=== PATIENT | male | born 1970 | race Caucasian/White ===

== ENCOUNTER 2018-10-30 16:23 | Inpatient (IN) | payer OTHER ==
[2018-10-30 21:32] VITALS: BMI 21.1
--- NOTE | 2018-10-30 22:52 | HP ---
COWS - Scale Resting Pulse: 1= [place] 81-100 Sweatin=Flushed/Facial Moisture Restless Observation: 5= Unable to Sit Still Pupil Size: 1= Pupils >than Normal Bone or Joint Aches: 4=Acute Joint/Muscle Pain Runny Nose/ Eye Tearin= Runny Nose/Eyes GI Upset > 30mins: 3= Vomiting/Diarrhea Tremor Observation: 0= None Yawning Observation: 2= >3x During Session Anxiety or Irritability: 4=Extreme Anxiety Goose Flesh Skin: 0=Smooth Skin COWS Score: 24 CIWA Score - Admission Criteria [facility]ASAS Guidelines: Admission for Medically Managed Detox: Requires at least one of the followin. CIWA greater than 12 2. Seizures within the past 24 hours 3. Delirium tremens within the past 24 hours 4. Hallucinations within the past 24 hours 5. Acute intervention needed for co occurring medical disorder 6. Acute intervention needed for co occurring psychiatric disorder 7. Severe withdrawal that cannot be handled at a lower level of care (continued vomiting, continued diarrhea, abnormal vital signs) requiring intravenous medication and/or fluids 8. Admission [facility] Chief Complaint: C/O WITHDRAWAL SX'S.SEEKING DETOX Allergies/Adverse Reactions: Allergies Allergy/AdvReac Type Severity Reaction Status Date / Time No Known Allergies Allergy Verified 10/30/18 21:58 History of Present Illness: 47 Y.O. MALE WITH HX/O HEROIN AND COCAINE DEPENDENCE HERE FOR DETOX. CLIENT PRESENTS IN MODERATE DISTRESS C/O WITHDRAWAL SX'S. COWS 24. UTOX + FEN, THC, OPI , KENNY, MET. EVELIO 0. HE IS SELF REFERRED. STATES THIS IS HIS FIRST ATTEMPT AT INPATIENT SUBSTANCE ABUSE TXMENT. REPORTS USING 5 BUNDLES DAILY/ SNIFF/ LAST USED THIS MORNING 10 BAGS. DENIES ANY SIGNIFICANT PERIOD OF CLEAN TIME. REPORTS PREVIOUS OVERDOSE X 2. DENIES PAST/ PRESENT SI/HI, AVH, SEIZURE D/O/. HOMELESS, UNEMPLOYED, DENIES LEGALS PMHX- ASTHMA, PSYCH - SCHIZOPHRENIA Exam Limitations: No Limitations - Ebola screening Have you traveled outside of the country in the last 21 days: No Have you had contact with anyone from an Ebola affected area: No Have you been sick,other than usual withdrawal symptoms: No Do you have a fever: No - Review of Systems Constitutional: Chills, Loss of Appetite, Malaise, Night Sweats, Changes in sleep, Unexplained wgt Loss EENT: reports: Nose Congestion, Dental Problems (MISSING TEETH) Respiratory: reports: Shortness of Breath Cardiac: reports: No Symptoms Reported GI: reports: Diarrhea, Nausea, Poor Appetite, Vomiting, Abdominal cramping : reports: No Symptoms Reported Musculoskeletal: reports: Back Pain, Joint Pain, Neck Pain Integumentary: reports: No Symptoms Reported Neuro: reports: No Symptoms reported Endocrine: reports: No Symptoms Reported Hematology: reports: No Symptoms Reported Psychiatric: reports: Orientated x3, Agitated, Anxious, Depressed Other Systems: Reviewed and Negative Patient History - Patient Medical History Hx Anemia: No Hx Asthma: Yes Hx Chronic Obstructive Pulmonary Disease (COPD): No Hx Cancer: No Hx Cardiac Disorders: No Hx Congestive Heart Failure: No Hx Hypertension: No Hx Hypercholesterolemia: No Hx Pacemaker: No HX Cerebrovascular Accident: No Hx Seizures: No Hx Diabetes: No Hx Gastrointestinal Disorders: No Hx Liver Disease: No Hx Genitourinary Disorders: No Hx Sexually Transmitted Disorders: No Hx Renal Disease (ESRD): No Hx Thyroid Disease: No Hx Human Immunodeficiency Virus (HIV): No Hx Hepatitis C: No Hx Depression: Yes Hx Suicide Attempt: No Hx Schizophrenia: Yes - Patient Surgical History Past Surgical History: No Hx Neurologic Surgery: No Hx Cataract Extraction: No Hx Cardiac Surgery: No Hx Lung Surgery: No Hx Breast Surgery: No Hx Breast Biopsy: No Hx Abdominal Surgery: No Hx Appendectomy: No Hx Cholecystectomy: No Hx Genitourinary Surgery: No Hx Section: No Hx Orthopedic Surgery: No Anesthesia Reaction: No - PPD History Previous Implant?: Yes Documented Results: Negative w/o proof Implanted On Prior R Admission?: No PPD to be Administered?: Yes - Smoking Cessation Smoking history: Current every day smoker Have you smoked in the past 12 months: Yes Aproximately how many cigarettes per day: 20 Cigars Per Day: 0 Hx Chewing Tobacco Use: No Initiated information on smoking cessation: Yes 'Breaking Loose' booklet given: 10/30/18 - Substance & Tx. History Hx Alcohol Use: Yes Hx Substance Use: Yes Substance Use Type: Cocaine, Heroin Hx Substance Use Treatment: No - Substances Abused Heroin Route: Inhalation Frequency: Daily Amount used: 50 bags Age of first use: 36 Date of Last Use: 10/30/18 Alprazolam (Xanax) Route: Oral Frequency: Daily Amount used: 2mg Age of first use: 36 Date of Last Use: 10/26/18 Cocaine Route: Smoking Frequency: Daily Amount used: 10 bags Age of first use: 14 Date of Last Use: 10/30/18 Family Disease History - Family Disease History Family Disease History: Other: Father (MENTAL HEALTH ISSUES) Admission Physical Exam [facility] - Vital Signs Vital Signs: Vital Signs - 24 hr 10/30/18 21:27 Temperature 97.8 F Pulse Rate 76 Respiratory 18 Rate Blood Pressure 116/79 - Physical General Appearance: Yes: Appropriately Dressed, Moderate Distress, Tremorous ( FELT), Irritable, Sweating, Anxious HEENTM: Yes: EOMI (DILATED PUPILS), Normocephalic, Normal Voice, SOFIA, Pharynx Normal, Nasal Congestion, Rhinorrhea, Other (POOR DENTITION) Respiratory: Yes: Chest Non-Tender, Lungs Clear, Normal Breath Sounds, No Respiratory Distress, No Accessory Muscle Use Neck: Yes: No masses,lesions,Nodules, Supple, Trachea in good position Breast: Yes: Breasts Symetrical Cardiology: Yes: Regular Rhythm, S1, S2, Tachycardia Abdominal: Yes: Non Tender, Flat, Soft, Increased Bowel Sounds Genitourinary: Yes: Hesitency Back: Yes: Normal Inspection Musculoskeletal: Yes: full range of Motion, Gait Steady Extremities: Yes: Normal Capillary Refill, Normal Range of Motion, Non-Tender, Tremors (FELT) Neurological: Yes: Fully Oriented, Alert, Motor Strength 5/5 Integumentary: Yes: Clammy (AND COOL) Lymphatic: Yes: Within Normal Limits - Diagnostic (1) Opioid dependence with withdrawal Current Visit: Yes Status: Acute (2) Cocaine abuse, uncomplicated Current Visit: Yes Status: Acute (3) Cannabis abuse, uncomplicated Current Visit: Yes Status: Acute (4) Nicotine dependence Current Visit: Yes Status: Acute Qualifiers: Nicotine product type: cigarettes Substance use status: uncomplicated Qualified Code(s): F17.210 - Nicotine dependence, cigarettes, uncomplicated (5) Asthma Current Visit: Yes Status: Chronic Qualifiers: Asthma severity: mild Asthma persistence: unspecified (6) Substance induced mood disorder Current Visit: Yes Status: Acute (7) Substance-induced sleep disorder Current Visit: Yes Status: Acute (8) At risk for dehydration due to poor fluid intake Current Visit: Yes Status: Acute (9) Depressed affect Current Visit: Yes Status: Acute (10) Homeless Current Visit: Yes Status: Acute Cleared for Admission [facility] - Detox or Rehab [facility] Level of Care: Medically Managed Detox Regimen/Protocol: Methadone Claeared for Rehab Admission: No [facility] Breath Alcohol Content Breath Alcohol Content: 0 Urine Drug Screen - Results Drug Screen Negative: No Urine Drug Screen Results: THC-Marijuana, KENNY-Cocaine, OPI-Opiates, MET- Methamphetamine, FEN-Fentanyl Inpatient Rehab Admission - Rehab Decision to Admit Inpatient rehab admission?: No
[2018-10-30] MEDS ORDERED: BISMUTH SUBSALICYLATE 524 MG/30 ML UD PO PRN (22:56)
[2018-10-30] MEDS ORDERED: NICOTINE POLACRILEX 2 MG GUM BUC PRN (22:56)
[2018-10-30] MEDS ORDERED: MAGNESIUM HYDROX 2400MG/30ML ORAL SUSPENSION 30 ML CUP PO PRN (22:56)
[2018-10-30] MEDS ORDERED: MAG HYDROX/AL HYDROX/SIMETH 30 ML UNIT-DOSE CUP PO PRN (22:56)
[2018-10-30] MEDS ORDERED: IBUPROFEN 400 MG TABLET (FP) PO PRN (22:56)
[2018-10-30] MEDS ORDERED: METHOCARBAMOL 500 MG TABLET PO PRN (22:56)
[2018-10-30] MEDS ORDERED: P-EPHED 60MG/TRIPROLIDI 2.5MG TABLET PO PRN (22:56)
[2018-10-30] MEDS ORDERED: ACETAMINOPHEN 325 MG TABLET (FP) PO PRN (22:56)
[2018-10-30] MEDS ORDERED: ONDANSETRON *ODT* 4 MG TABLET SL PRN (22:56)
[2018-10-30] MEDS ORDERED: DICYCLOMINE HCL 10 MG CAPSULE PO PRN (22:56)
[2018-10-30] MEDS ORDERED: guaiFENesin 200 MG/10 ML 10 ML UNIT-DOSE CUPS PO PRN (22:56)
[2018-10-30] MEDS ORDERED: MENTHOL/PHENOL 1 EACH UD MM PRN (22:56)
[2018-10-30] MEDS ORDERED: MAGNESIUM CITRATE 300 ML BOTTLE PO PRN (22:56)
[2018-10-30] MEDS ORDERED: NALOXONE HCL 0.4 MG/ML VIAL IVPUSH PRN (23:55)
[2018-10-31] MEDS: hydrOXYzine PAMOATE 25 MG CAPSULE (FP) PO PRN ×2 (00:34→10:16)
[2018-10-31] MEDS: cloNIDine HCL 0.1 MG TABLET PO PRN ×2 (00:37→10:16)
[2018-10-31] MEDS ORDERED: METHADONE HCL 10 MG TABLET (FOR DETOX USE ONLY) PO ONE ×2 (10:00)
[2018-10-31] MEDS: NICOTINE 21 MG/24 HOURS TOPICAL PATCH TD SCH (10:16)
[2018-10-31] MEDS: PRENATAL VITAMINS W/ FOLIC ACID TABLET (FP) PO SCH (10:16)
[2018-10-31 11:32] LABS: ALBUMIN 3.4 g/dl (3.4-5.0); ALK PHOS 80 U/L (45-117); ANION GAP 6 MMOL/L (8-16); BILIRUBIN,TOTAL 0.4 mg/dL (0.2-1); BLOOD UREA NITROGEN 11 mg/dL (7-18); CALCIUM 9.4 mg/dL (8.5-10.1); CHLORIDE 107 mmol/L (98-107); CO2 26 mmol/L (21-32); CREATININE 0.8 mg/dL (0.55-1.3); GLUCOSE,RANDOM 85 mg/dL (74-106); POTASSIUM 4.5 mmol/L (3.5-5.1); SGOT/AST 13 U/L (15-37); SGPT/ALT 22 U/L (13-61); SODIUM 139 mmol/L (136-145); TOT PROT 6.9 g/dl (6.4-8.2)
[2018-10-31 11:42] LABS: HEMATOCRIT 42.8 % (35.4-49); HEMOGLOBIN 14.6 GM/dL (11.7-16.9); MCH 30.1 pg (25.7-33.7); MEAN CELL VOLUME 88.5 fl (80-96); MEAN PLT VOLUME 8.7 fl (7.5-11.1); PLATELET COUNT 242 K/MM3 (134-434); RBC 4.83 M/mm3 (4.00-5.60); RDW 14.5 % (11.9-15.9)
--- NOTE | 2018-10-31 11:54 | PN ---
S COWS - Scale Resting Pulse: 0= [place] 80 or Below Sweatin= Chills/Flushing Restless Observation: 1= Difficult to Sit Still Pupil Size: 1= Pupils >than Normal Bone or Joint Aches: 2= Severe Diffuse Aches Runny Nose/ Eye Tearin= Runny Nose/Eyes GI Upset > 30mins: 2= Nausea/Diarrhea Tremor Observation of Outstretched Hands: 2= Slight Tremor Visible Yawning Observation: 2= >3x During Session Anxiety or Irritability: 2=Irritable/Anxious Goose Flesh Skin: 3=Piloerection COWS Score: 18 S Progress Note (SOAP) Subjective: reporting has severe opiate withdrawal yesterday better today about to tolerate food and fluid well Objective: 10/31/18 13:58 Vital Signs Temperature 97.7 F 10/31/18 10:24 Pulse Rate 64 10/31/18 10:24 Respiratory Rate 18 10/31/18 10:24 Blood Pressure 110/70 10/31/18 10:24 O2 Sat by Pulse Oximetry (%) Laboratory Last Values WBC 7.0 K/mm3 (4.0-10.0) 10/31/18 07:30 RBC 4.83 M/mm3 (4.00-5.60) 10/31/18 07:30 Hgb 14.6 GM/dL (11.7-16.9) 10/31/18 07:30 Hct 42.8 % (35.4-49) 10/31/18 07:30 MCV 88.5 fl (80-96) 10/31/18 07:30 MCH 30.1 pg (25.7-33.7) 10/31/18 07:30 MCHC 34.0 g/dl (32.0-35.9) 10/31/18 07:30 RDW 14.5 % (11.9-15.9) 10/31/18 07:30 Plt Count 242 K/MM3 (134-434) 10/31/18 07:30 MPV 8.7 fl (7.5-11.1) 10/31/18 07:30 Sodium 139 mmol/L (136-145) 10/31/18 07:30 Potassium 4.5 mmol/L (3.5-5.1) 10/31/18 07:30 Chloride 107 mmol/L (98-107) 10/31/18 07:30 Carbon Dioxide 26 mmol/L (21-32) 10/31/18 07:30 Anion Gap 6 MMOL/L (8-16) L 10/31/18 07:30 BUN 11 mg/dL (7-18) 10/31/18 07:30 Creatinine 0.8 mg/dL (0.55-1.3) 10/31/18 07:30 Creat Clearance w eGFR 104.07 (>60) 10/31/18 07:30 Random Glucose 85 mg/dL (74-106) 10/31/18 07:30 Calcium 9.4 mg/dL (8.5-10.1) 10/31/18 07:30 Total Bilirubin 0.4 mg/dL (0.2-1) 10/31/18 07:30 AST 13 U/L (15-37) L 10/31/18 07:30 ALT 22 U/L (13-61) 10/31/18 07:30 Alkaline Phosphatase 80 U/L (45-117) 10/31/18 07:30 Total Protein 6.9 g/dl (6.4-8.2) 10/31/18 07:30 Albumin 3.4 g/dl (3.4-5.0) 10/31/18 07:30 RPR Titer Nonreactive (NONREACTIVE) 10/31/18 07:30 lab noted Assessment: 10/31/18 13:59 withdrawal sx Plan: continue detox
--- NOTE | 2018-10-31 12:03 | EKG ---
Test Reason : Blood Pressure : / mmHG Vent. Rate : 064 BPM Atrial Rate : 064 BPM P-R Int : 164 ms QRS Dur : 082 ms QT Int : 388 ms P-R-T Axes : 050 043 039 degrees QTc Int : 400 ms NORMAL SINUS RHYTHM NORMAL ECG NO PREVIOUS ECGS AVAILABLE Confirmed by ELOISA SHARMA MD ([id number]) on 10/31/2018 12:03:17 PM Referred By: CHRISTOPH Confirmed By:ELOISA SHARMA MD
--- NOTE | 2018-10-31 17:30 | CONSULT ---
[facility] Psychiatric Consult - Data Date of interview: 10/31/18 Admission source: [facility] Identifying data: First admission to [facility] for this 47 y/o male self-referred for detoxification (cocaine, heroin, xanax, cannabis). Examined on 3 . Patient is single, no children, homeless, unemployed and supported on Public Assistance (SSI benefits were revoked during patient's incarceration). Substance Abuse History: Confirmed by the patient in this session. Details in current [facility] report as follows : Smoking history: Current every day smoker. Have you smoked in the past 12 months: Yes. Aproximately how many cigarettes per day: 20. Cigars Per Day: 0. Hx Chewing Tobacco Use: No. Initiated information on smoking cessation: Yes. 'Breaking Loose' booklet given: . - Substance & Tx. History. Hx Alcohol Use: Yes. Hx Substance Use: Yes. Substance Use Type: Cocaine, Heroin. Hx Substance Use Treatment: No. - Substances Abused. Heroin. Route: Inhalation. Frequency: Daily. Amount used: 50 bags. Age of first use: 36. Date of Last Use: 10/30/18. Alprazolam (Xanax). Route: Oral. Frequency: Daily. Amount used: 2mg. Age of first use: 36. Date of Last Use: 10/26/18. Cocaine. Route: Smoking. Frequency: Daily. Amount used: 10 bags. Age of first use: 14. Date of Last Use: 10/30/18 Medical History: Bronchial asthma. Psychiatric History: Patient denies history of psychiatric hospitalizations. Diagnosed with Schizophrenia (self-report). Not on medications. No reported history of psychiatric OPD care. " They told me that I have schizophrenia at the [facility] ". Mr Salter denies history of suicide attempts. Physical/Sexual Abuse/Trauma History: None reported. Additional Comment: Urine Drug Screen Results: THC-Marijuana, KENNY-Cocaine, OPI- Opiates, MET-Methamphetamine, FEN-Fentanyl. Noted. Mental Status Exam - Mental Status Exam Alert and Oriented to: Time, Place, Person Cognitive Function: Good Patient Appearance: Unkempt, Disheveled Mood: Nervous, Withdrawn Affect: Mood Congruent, Constricted Patient Behavior: Fatigued, Appropriate, Cooperative Speech Pattern: Clear Voice Loudness: Normal Thought Process: Goal Oriented Thought Disorder: Not Present Hallucinations: Denies Suicidal Ideation: Denies Homicidal Ideation: Denies Insight/Judgement: Poor Sleep: Well Appetite: Fair Muscle strength/Tone: Normal Gait/Station: Other (not observed; in bed for entire interview) Psychiatric Findings - Problem List ([place] 1, 2,3) (1) Opioid dependence with withdrawal Current Visit: Yes Status: Acute (2) Cannabis abuse, uncomplicated Current Visit: Yes Status: Chronic (3) Cocaine abuse, uncomplicated Current Visit: Yes Status: Chronic (4) Nicotine dependence Current Visit: Yes Status: Chronic Qualifiers: Nicotine product type: cigarettes Substance use status: uncomplicated Qualified Code(s): F17.210 - Nicotine dependence, cigarettes, uncomplicated (5) Substance induced mood disorder Current Visit: Yes Status: Chronic (6) History of schizophrenia Current Visit: Yes Status: Chronic Comment: As per self-report. Not on medications. No affiliation with OPD care providers. Questionable historian. - Initial Treatment Plan Initial Treatment Plan: Psychoeducation. Sleep hygiene. Detoxification in progress. Support. NA meetings. Observation.
[2018-10-31] MEDS: THIAMINE HCL 100 MG TABLET (FP) PO SCH (22:27)
[2018-11-01] MEDS ORDERED: METHADONE HCL 10 MG TABLET (FOR DETOX USE ONLY) PO ONE (10:00)
[2018-11-01] MEDS: PRENATAL VITAMINS W/ FOLIC ACID TABLET (FP) PO SCH (10:18)
[2018-11-01] MEDS: NICOTINE 21 MG/24 HOURS TOPICAL PATCH TD SCH (10:18)
[2018-11-01] MEDS: hydrOXYzine PAMOATE 25 MG CAPSULE (FP) PO PRN (10:19)
--- NOTE | 2018-11-01 14:10 | PN ---
BHS COWS - Scale Resting Pulse: 0= [place] 80 or Below Sweatin= Chills/Flushing Restless Observation: 0= Sits Still Pupil Size: 1= Pupils >than Normal Bone or Joint Aches: 2= Severe Diffuse Aches Runny Nose/ Eye Tearin= Nasal Congestion GI Upset > 30mins: 2= Nausea/Diarrhea Tremor Observation of Outstretched Hands: 2= Slight Tremor Visible Yawning Observation: 2= >3x During Session Anxiety or Irritability: 2=Irritable/Anxious Goose Flesh Skin: 0=Smooth Skin COWS Score: 13 BHS Progress Note (SOAP) Subjective: resting on bed, feeling better today had dose of methadone can wash self today Objective: 11/01/18 14:09 Vital Signs Temperature 97.2 F L 11/01/18 13:30 Pulse Rate 69 11/01/18 13:30 Respiratory Rate 20 11/01/18 13:30 Blood Pressure 124/85 11/01/18 13:30 O2 Sat by Pulse Oximetry (%) Laboratory Last Values WBC 7.0 K/mm3 (4.0-10.0) 10/31/18 07:30 RBC 4.83 M/mm3 (4.00-5.60) 10/31/18 07:30 Hgb 14.6 GM/dL (11.7-16.9) 10/31/18 07:30 Hct 42.8 % (35.4-49) 10/31/18 07:30 MCV 88.5 fl (80-96) 10/31/18 07:30 MCH 30.1 pg (25.7-33.7) 10/31/18 07:30 MCHC 34.0 g/dl (32.0-35.9) 10/31/18 07:30 RDW 14.5 % (11.9-15.9) 10/31/18 07:30 Plt Count 242 K/MM3 (134-434) 10/31/18 07:30 MPV 8.7 fl (7.5-11.1) 10/31/18 07:30 Sodium 139 mmol/L (136-145) 10/31/18 07:30 Potassium 4.5 mmol/L (3.5-5.1) 10/31/18 07:30 Chloride 107 mmol/L (98-107) 10/31/18 07:30 Carbon Dioxide 26 mmol/L (21-32) 10/31/18 07:30 Anion Gap 6 MMOL/L (8-16) L 10/31/18 07:30 BUN 11 mg/dL (7-18) 10/31/18 07:30 Creatinine 0.8 mg/dL (0.55-1.3) 10/31/18 07:30 Creat Clearance w eGFR 104.07 (>60) 10/31/18 07:30 Random Glucose 85 mg/dL (74-106) 10/31/18 07:30 Calcium 9.4 mg/dL (8.5-10.1) 10/31/18 07:30 Total Bilirubin 0.4 mg/dL (0.2-1) 10/31/18 07:30 AST 13 U/L (15-37) L 10/31/18 07:30 ALT 22 U/L (13-61) 10/31/18 07:30 Alkaline Phosphatase 80 U/L (45-117) 10/31/18 07:30 Total Protein 6.9 g/dl (6.4-8.2) 10/31/18 07:30 Albumin 3.4 g/dl (3.4-5.0) 10/31/18 07:30 RPR Titer Nonreactive (NONREACTIVE) 10/31/18 07:30 lab noted Assessment: 11/01/18 14:09 withdrawal sx Plan: continue detox
[2018-11-01] MEDS: THIAMINE HCL 100 MG TABLET (FP) PO SCH (23:18)
[2018-11-02] MEDS: hydrOXYzine PAMOATE 25 MG CAPSULE (FP) PO PRN (09:59)
[2018-11-02] MEDS: NICOTINE 21 MG/24 HOURS TOPICAL PATCH TD SCH (09:59)
[2018-11-02] MEDS: PRENATAL VITAMINS W/ FOLIC ACID TABLET (FP) PO SCH (09:59)
[2018-11-02] MEDS ORDERED: METHADONE HCL 10 MG TABLET (FOR DETOX USE ONLY) PO ONE (10:00)
[2018-11-02 12:36] LABS: PH,URINE 5.5 (5.0-8.0); URINE APPEARANCE CLEAR; URINE BILIRUBIN NEGATIVE (<2.0 mg/dL); URINE COLOR YELLOW; URINE GLUCOSE (UA) NEGATIVE (NEGATIVE); URINE KETONE NEGATIVE (NEGATIVE); URINE LEUK ESTERASE NEGATIVE (NEGATIVE); URINE NITRITE NEGATIVE (NEGATIVE); URINE PROTEIN NEGATIVE (NEGATIVE); URINE UROBILINOGEN 0.2 mg/dL (0.2-1.0)
--- NOTE | 2018-11-02 16:59 | PN ---
BHS Progress Note (SOAP) Subjective: Fatigue, Anxious, Body Aches, Interrupted Sleep. Objective: PATIENT A & O X 1 (UNCERTAIN ABOUT CURRENT DAY / DATE AND ABOUT CURRENT LOCATION ). PATIENT OBSERVED LYING IN BED, IN NO ACUTE DISTRESS. 11/02/18 16:58 Vital Signs Temperature 97.5 F L 11/02/18 13:52 Pulse Rate 64 11/02/18 13:52 Respiratory Rate 18 11/02/18 13:52 Blood Pressure 97/65 11/02/18 13:52 O2 Sat by Pulse Oximetry (%) Laboratory Tests 10/31/18 10/31/18 10/31/18 07:30 07:30 07:30 WBC 7.0 RBC 4.83 Hgb 14.6 Hct 42.8 MCV 88.5 MCH 30.1 MCHC 34.0 RDW 14.5 Plt Count 242 MPV 8.7 Sodium 139 Potassium 4.5 Chloride 107 Carbon Dioxide 26 Anion Gap 6 L BUN 11 Creatinine 0.8 Creat Clearance w eGFR 104.07 Random Glucose 85 Calcium 9.4 Total Bilirubin 0.4 AST 13 L ALT 22 Alkaline Phosphatase 80 Total Protein 6.9 Albumin 3.4 Urine Color Urine Appearance Urine pH Ur Specific [place] Urine Protein Urine Glucose (UA) Urine Ketones Urine Blood Urine Nitrite Urine Bilirubin Urine Urobilinogen Ur Leukocyte Esterase RPR Titer Nonreactive 11/02/18 07:00 WBC RBC Hgb Hct MCV MCH MCHC RDW Plt Count MPV Sodium Potassium Chloride Carbon Dioxide Anion Gap BUN Creatinine Creat Clearance w eGFR Random Glucose Calcium Total Bilirubin AST ALT Alkaline Phosphatase Total Protein Albumin Urine Color Yellow Urine Appearance Clear Urine pH 5.5 Ur Specific [place] 1.020 Urine Protein Negative Urine Glucose (UA) Negative Urine Ketones Negative Urine Blood Negative Urine Nitrite Negative Urine Bilirubin Negative Urine Urobilinogen 0.2 Ur Leukocyte Esterase Negative RPR Titer LABS NOTED. 11/02/18 16:59 Assessment: 11/02/18 16:58 WITHDRAWAL SYMPTOMS. HYPOTENSION. Plan: CONTINUE DETOX. INCREASE DAILY PO FLUID INTAKE. ENCOURAGE AMBULATION.
[2018-11-02] MEDS: THIAMINE HCL 100 MG TABLET (FP) PO SCH (22:21)
[2018-11-02] MEDS: MELATONIN 5 MG TABLETS PO PRN (22:21)
[2018-11-03] MEDS ORDERED: METHADONE HCL 10 MG TABLET (FOR DETOX USE ONLY) PO ONE (10:00)
[2018-11-03] MEDS: PRENATAL VITAMINS W/ FOLIC ACID TABLET (FP) PO SCH (10:18)
[2018-11-03] MEDS: NICOTINE 21 MG/24 HOURS TOPICAL PATCH TD SCH (10:19)
[2018-11-03] MEDS: hydrOXYzine PAMOATE 25 MG CAPSULE (FP) PO PRN ×2 (10:20→22:35)
--- NOTE | 2018-11-03 14:51 | PN ---
BHS Progress Note (SOAP) Subjective: Fatigue, Anxious, Body Aches, Interrupted Sleep. Objective: PATIENT A & O X 3, OBSERVED AMBULATING ON UNIT. IN NO ACUTE DISTRESS. 11/03/18 14:50 Vital Signs Temperature 97.7 F 11/03/18 13:33 Pulse Rate 83 11/03/18 13:33 Respiratory Rate 18 11/03/18 13:33 Blood Pressure 138/80 11/03/18 13:33 O2 Sat by Pulse Oximetry (%) Laboratory Tests 10/31/18 10/31/18 10/31/18 07:30 07:30 07:30 WBC 7.0 RBC 4.83 Hgb 14.6 Hct 42.8 MCV 88.5 MCH 30.1 MCHC 34.0 RDW 14.5 Plt Count 242 MPV 8.7 Sodium 139 Potassium 4.5 Chloride 107 Carbon Dioxide 26 Anion Gap 6 L BUN 11 Creatinine 0.8 Creat Clearance w eGFR 104.07 Random Glucose 85 Calcium 9.4 Total Bilirubin 0.4 AST 13 L ALT 22 Alkaline Phosphatase 80 Total Protein 6.9 Albumin 3.4 Urine Color Urine Appearance Urine pH Ur Specific [place] Urine Protein Urine Glucose (UA) Urine Ketones Urine Blood Urine Nitrite Urine Bilirubin Urine Urobilinogen Ur Leukocyte Esterase RPR Titer Nonreactive 11/02/18 07:00 WBC RBC Hgb Hct MCV MCH MCHC RDW Plt Count MPV Sodium Potassium Chloride Carbon Dioxide Anion Gap BUN Creatinine Creat Clearance w eGFR Random Glucose Calcium Total Bilirubin AST ALT Alkaline Phosphatase Total Protein Albumin Urine Color Yellow Urine Appearance Clear Urine pH 5.5 Ur Specific [place] 1.020 Urine Protein Negative Urine Glucose (UA) Negative Urine Ketones Negative Urine Blood Negative Urine Nitrite Negative Urine Bilirubin Negative Urine Urobilinogen 0.2 Ur Leukocyte Esterase Negative RPR Titer LABS NOTED. Assessment: 11/03/18 14:50 WITHDRAWAL SYMPTOMS. Plan: CONTINUE DETOX. ENCOURAGE AMBULATION.
[2018-11-03] MEDS: THIAMINE HCL 100 MG TABLET (FP) PO SCH (22:33)
[2018-11-03] MEDS: MELATONIN 5 MG TABLETS PO PRN (22:33)
[2018-11-04] MEDS ORDERED: METHADONE HCL 5 MG TABLET (FOR DETOX USE ONLY) PO ONE (06:00)
[2018-11-04 06:29] VITALS: BP 109/67; PULSE 56; TEMP 96.9
--- NOTE | 2018-11-04 08:47 | DS ---
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 pharmacy - Physical Exam Results Vital Signs: Vital Signs Temperature 96.9 F L 11/04/18 06:28 Pulse Rate 56 L 11/04/18 06:28 Respiratory Rate 18 11/04/18 06:28 Blood Pressure 109/67 11/04/18 06:28 O2 Sat by Pulse Oximetry (%) Pertinent Admission Physical Exam Findings: opiate withdrawal sx Laboratory Last Values WBC 7.0 K/mm3 (4.0-10.0) 10/31/18 07:30 RBC 4.83 M/mm3 (4.00-5.60) 10/31/18 07:30 Hgb 14.6 GM/dL (11.7-16.9) 10/31/18 07:30 Hct 42.8 % (35.4-49) 10/31/18 07:30 MCV 88.5 fl (80-96) 10/31/18 07:30 MCH 30.1 pg (25.7-33.7) 10/31/18 07:30 MCHC 34.0 g/dl (32.0-35.9) 10/31/18 07:30 RDW 14.5 % (11.9-15.9) 10/31/18 07:30 Plt Count 242 K/MM3 (134-434) 10/31/18 07:30 MPV 8.7 fl (7.5-11.1) 10/31/18 07:30 Sodium 139 mmol/L (136-145) 10/31/18 07:30 Potassium 4.5 mmol/L (3.5-5.1) 10/31/18 07:30 Chloride 107 mmol/L (98-107) 10/31/18 07:30 Carbon Dioxide 26 mmol/L (21-32) 10/31/18 07:30 Anion Gap 6 MMOL/L (8-16) L 10/31/18 07:30 BUN 11 mg/dL (7-18) 10/31/18 07:30 Creatinine 0.8 mg/dL (0.55-1.3) 10/31/18 07:30 Creat Clearance w eGFR 104.07 (>60) 10/31/18 07:30 Random Glucose 85 mg/dL (74-106) 10/31/18 07:30 Calcium 9.4 mg/dL (8.5-10.1) 10/31/18 07:30 Total Bilirubin 0.4 mg/dL (0.2-1) 10/31/18 07:30 AST 13 U/L (15-37) L 10/31/18 07:30 ALT 22 U/L (13-61) 10/31/18 07:30 Alkaline Phosphatase 80 U/L (45-117) 10/31/18 07:30 Total Protein 6.9 g/dl (6.4-8.2) 10/31/18 07:30 Albumin 3.4 g/dl (3.4-5.0) 10/31/18 07:30 Urine Color Yellow 11/02/18 07:00 Urine Appearance Clear 11/02/18 07:00 Urine pH 5.5 (5.0-8.0) 11/02/18 07:00 Ur Specific [place] 1.020 (1.010-1.035) 11/02/18 07:00 Urine Protein Negative (NEGATIVE) 11/02/18 07:00 Urine Glucose (UA) Negative (NEGATIVE) 11/02/18 07:00 Urine Ketones Negative (NEGATIVE) 11/02/18 07:00 Urine Blood Negative (NEGATIVE) 11/02/18 07:00 Urine Nitrite Negative (NEGATIVE) 11/02/18 07:00 Urine Bilirubin Negative (<2.0 mg/dL) 11/02/18 07:00 Urine Urobilinogen 0.2 mg/dL (0.2-1.0) 11/02/18 07:00 Ur Leukocyte Esterase Negative (NEGATIVE) 11/02/18 07:00 RPR Titer Nonreactive (NONREACTIVE) 10/31/18 07:30 lab noted - Treatment Hospital Course: Detox Protocol Followed, Detoxed Safely, Responded well, Discharged Condition Good, Rehab Referral Accepted Patient has Accepted a Rehab Referral to: [facility] - Medication Discharge Medications: Ambulatory Orders Naloxone HCl [Narcan] 4 mg NS ASDIR PRN #1 spray 11/04/18 - Diagnosis (1) Opioid dependence with withdrawal Status: Acute (2) Asthma Status: Chronic Qualifiers: Asthma severity: mild Asthma persistence: intermittent Asthma complication type: with status asthmaticus Qualified Code(s): J45.22 - Mild intermittent asthma with status asthmaticus (3) Nicotine dependence Status: Acute Qualifiers: Nicotine product type: cigarettes Substance use status: in withdrawal Qualified Code(s): F17.213 - Nicotine dependence, cigarettes, with withdrawal (4) Substance induced mood disorder Status: Suspected - AMA Did Patient Leave Against Medical Advice: No
[2018-11-04] MEDS: PRENATAL VITAMINS W/ FOLIC ACID TABLET (FP) PO SCH (09:24)
== END 2018-11-04 09:27 | disposition home or self-care (01) | DRG 773 ==
LOC: YASAS 16:23 → Y3N 22:59
PROVIDERS: ADMIT Surgery; ATTEND Surgery
PROC: HZ2ZZZZ Detoxification Services for Substance Abuse Treatment (ICD-10-PCS; principal; 2018-10-30)
DX: F11.23 Opioid dependence with withdrawal (principal); F14.10 Cocaine abuse, uncomplicated; F12.10 Cannabis abuse, uncomplicated; F17.213 Nicotine dependence, cigarettes, with withdrawal; F19.24 Other psychoactive substance dependence with psychoactive substance-induced mood disorder; I95.9 Hypotension, unspecified; J45.22 Mild intermittent asthma with status asthmaticus; Z86.59 Personal history of other mental and behavioral disorders; Z59.0 Homelessness
CPT/HCPCS: 36415; 80053; 81003; 85027; 86593; 93005; 93010; J0735